=== PATIENT | female | born 1930 | race Two or more races ===

== ENCOUNTER 2018-04-13 15:53 | Inpatient (IN) | payer MEDICARE, MEDICAID ==
--- NOTE | 2018-04-13 16:22 | ED Physician Chart ---
ED Chief Complaint/HPI - Patient Information Date Seen:: 04/13/18 Time Seen:: 16:10 Chief Complaint:: increased agitation History of Present Illness:: Patient has been exhibiting increased agitation at her long term facility. She is reportedly wandering from room to room Allergies:: Allergies Allergy/AdvReac Type Severity Reaction Status Date / Time No Known Allergies Allergy Verified 04/13/18 16:08 Vitals:: Vital Signs - 8 hr 04/13/18 16:08 Temp 97.7 F HR 66 RR 18 BP 99/60 O2 Sat % 98 Historian:: Patient Review:: Transfer documents Reviewed ED Review of Systems - Review of Systems General/Constitutional: No fever, No chills, No weight loss, No weakness, No diaphoresis, No edema, No loss of appetite Skin: No skin lesions, No rash, No bruising Head: No headache, No light-headedness Eyes: No loss of vision, No pain, No diplopia ENT: No earache, No nasal drainage, No sore throat, No tinnitus Neck: No neck pain, No swelling, No thyromegaly, No stiffness, No mass noted Cardio Vascular: No chest pain, No palpitations, No PND, No orthopnea, No edema Pulmonary: No SOB, No cough, No sputum, No wheezing GI: No nausea, No vomiting, No diarrhea, No pain, No melena, No hematochezia, No constipation, No hematemesis G/U: No dysuria, No frequency, No hematuria Musculoskeletal: No bone or joint pain, No back pain, No muscle pain Endocrine: No polyuria, No polydipsia Psychiatric: Prior psych history Hematopoietic: No bruising, No lymphadenopathy Allergic/Immuno: No urticaria, No angioedema Neurological: No syncope, No focal symptoms, No weakness, No paresthesia, No headache, No seizure, No dizziness, No confusion, No vertigo ED Past Medical History - Past Medical History Past Medical History: HTN, DM, Asthma/COPD, Dyslipidemia, Dementia, Other ( cancer) Family History: Other (unavailable) Social History: Care Facility Surgical History: other (unavailable) Psychiatricy History: Dementia Medication: Reviewed Family Medical History - Family Member Mother History Unknown: Yes ED Physical Exam - Physical Examination General/Constitutional: Awake, Well-developed, well-nourished, Alert, No distress, GCS 15, Non-toxic appearing, Ambulatory Other Gen/Cons comments:: Patient is confused she does not know the year Head: Atraumatic Eyes: Lids, conjuctiva normal, PERRL Skin: Nl inspection ENMT: External ears, nose nl Other ENMT comments:: Many teeth missing Neck: No nuchal rigidity Respiratory: Nl effort/Exclusion Cardio Vascular: RRR, No murmur, gallop, rubs GI: No tenderness/rebounding/guarding : No CVA tenderness Extremities: Normal digits & nails Neuro/Psych: No focal deficits ED Labs/Radiology/EKG Results - Lab Results Results: Laboratory Results - last 24 hr 04/13/18 04/13/18 16:48 16:48 WBC 5.1 RBC 3.96 Hgb 12.5 Hct 36.7 L MCV 92.6 MCH 31.6 H MCHC Differential 34.1 RDW 12.3 Plt Count 212 MPV 8.1 Neutrophils % 64.5 Lymphocytes % 25.5 Monocytes % 8.7 Eosinophils % 0.7 Basophils % 0.6 Sodium 137 Potassium 3.5 Chloride 105 Carbon Dioxide 26.6 Anion Gap 8.9 BUN 25 Creatinine 0.8 Est GFR ( Amer) TNP Est GFR (Non-Af Amer) TNP BUN/Creatinine Ratio 31.3 Glucose 179 H Calcium 9.5 Total Bilirubin 0.3 AST 18 ALT 5 L Alkaline Phosphatase 62 Total Protein 6.8 Albumin 4.1 Globulin 2.7 Albumin/Globulin Ratio 1.5 Triglycerides 131 Cholesterol 141 LDL Cholesterol Direct 70 L HDL Cholesterol 55 Salicylates < 25.0 L Acetaminophen < 10.0 L Ethyl Alcohol < 10 - EKG Interpretations Rate & Rhythm: normal sinus rhythm with a rate of 61 [place]: normal Comments:: Left bundle-branch block ED Septic Shock - . Is Septic Shock (SBP<90, OR Lactate>4 mmol\L) present?: No - <6hrs of presentation: Vital Signs: Vital Signs - 8 hr 04/13/18 16:08 Temp 97.7 F HR 66 RR 18 BP 99/60 O2 Sat % 98 ED Reassessment (Disposition) - Reassessment Reassessment Condition:: Unchanged - Diagnosis Diagnosis:: Agitation; dementia - Patient Disposition Admitted to:: [facility] Admitting Medical Physician:: Derick Glez Admitting Psych Physician:: Gloria Rodriguez Condition at Disposition:: Stable, Unchanged
[2018-04-13 17:08] LABS: % BASOPHILS 0.6 % (0.0-2.0); % EOSINOPHILS 0.7 % (0.0-5.0); % LYMPHOCYTES 25.5 % (20.0-50.0); % MONOCYTES 8.7 % (2.0-10.0); % NEUTROPHILS 64.5 % (40.0-80.0); HEMATOCRIT 36.7 % (41.0-60); HEMOGLOBIN 12.5 gm/dL (12-16); LYMPHOCYTE ABSOLUTE 1.3 Th/cmm (1.5-3.0); MEAN CELL VOLUME 92.6 fl (81-100); MEAN CORPUSCULAR HEMOGLOBIN 31.6 pg (27.0-31.0); MEAN CORPUSCULAR HGB CONC 34.1 pg (28.0-36.0); MEAN PLATELET VOLUME 8.1 fl; MONOCYTE ABSOLUTE 0.4 Th/cmm (0.3-1.0); NEUTROPHILE ABSOLUTE 3.4 Th/cmm (1.8-8.0); PLATELET COUNT 212 Th/cmm (150-400); RED BLOOD COUNT 3.96 Mil/cmm (3.80-5.20); RED CELL DISTRIBUTION WIDTH 12.3 % (11.5-20.0); WHITE BLOOD COUNT 5.1 Th/cmm (4.8-10.8)
[2018-04-13 17:22] LABS: ACETAMINOPHEN < 10.0 ug/mL (10.0-30.0); ALB/GLOB RATIO 1.5 (1.0-1.8); ALBUMIN 4.1 gm/dL (3.7-5.3); ALKALINE PHOSPHATASE 62 U/L (34-104); ANION GAP 8.9 (7.0-16.0); BILIRUBIN,TOTAL 0.3 mg/dL (0.3-1.0); BUN - UREA NITROGEN 25 mg/dL (7-25); CALCIUM SERUM 9.5 mg/dL (8.6-10.3); CARBON DIOXIDE 26.6 mEq/L (21.0-31.0); CHLORIDE 105 mEq/L (98-107); CHOLESTEROL 141 mg/dL (<200); CREATININE - SERUM 0.8 mg/dL (0.6-1.2); GLUCOSE 179 mg/dL (70-105); HDL -HIGH DENSITY LIPOPROTEIN 55 mg/dL (23-92); POTASSIUM SERUM 3.5 mEq/L (3.5-5.1); SALICYLATES (ASPIRIN) < 25.0 mg/L (30.0-100.0); SGOT 18 U/L (13-39); SGPT/ALT 5 U/L (7-52); SODIUM SERUM 137 mEq/L (136-145); TOTAL PROTEIN,SERUM 6.8 gm/dL (6.0-8.3); TRIGLYCERIDES 131 mg/dL (<150)
[2018-04-13 17:24] LABS: URINE SOURCE CLEAN C
[2018-04-13 17:35] LABS: URINE BILIRUBIN NEGATIVE (NEGATIVE); URINE BLOOD NEGATIVE (NEGATIVE); URINE GLUCOSE (UA) NEGATIVE (NEGATIVE); URINE KETONE NEGATIVE (NEGATIVE); URINE LEUKOCYTE ESTERASE TRACE (NEGATIVE); URINE MICROSCOPIC INDICATED? YES; URINE NITRATE NEGATIVE (NEGATIVE); URINE PROTEIN NEGATIVE (NEGATIVE); URINE UROBILINOGEN 0.2 E.U./dL (0.2 - 1.0)
[2018-04-13 17:40] LABS: AMPHETAMINE URINE NEGATIVE (NEGATIVE); BARBITURATES URINE NEGATIVE (NEGATIVE); BENZODIAZEPINES QUAL URINE NEGATIVE (NEGATIVE); CANNABINOID THC NEGATIVE (NEGATIVE); COCAINE METABOLITE QUAL URINE NEGATIVE (NEGATIVE); METHADONE URINE NEGATIVE (NEGATIVE); METHAMPHETAMINES QUAL URINE NEGATIVE (NEGATIVE); OPIATES (MORPHINE) QUAL. URINE NEGATIVE (NEGATIVE); PHENCYCLIDINE (PCP) URINE NEGATIVE (NEGATIVE); TRICYCLICS (TCA) QUAL. URINE NEGATIVE (NEGATIVE)
[2018-04-13 17:58] LABS: URINE CLARITY CLEAR (CLEAR); URINE COLOR YELLOW
[2018-04-13 18:00] LABS: URINE BACTERIA 1+ /hpf (NONE SEEN); URINE EPITHELIAL CELLS OCCASIONAL /lpf (FEW); URINE RBC NONE SEEN /hpf (0-5)
[2018-04-13 21:33] VITALS: BP 119/67
[2018-04-13] MEDS ORDERED: Magnesium Hydroxide (MOM) 30 mL UDC PO PRN (23:25)
[2018-04-13] MEDS ORDERED: Fleet Enema 135 mL RC PRN (23:30)
[2018-04-14] MEDS: Multivitamin w/ Minerals Tab PO SCH (08:40)
[2018-04-14] MEDS: Calcium Carb/Vit D 500 mg/200 U Tab PO SCH ×2 (08:40→16:17)
[2018-04-14] MEDS: Fenofibrate, Micronized 134 mg Cap PO SCH (08:40)
[2018-04-14] MEDS ORDERED: Non-Formulary Item 1 EA (Amino Acids/Protein Hydrolys [Pro-Stat Sugar Free Liquid] 30 ML) PO SCH (09:00)
[2018-04-14] MEDS ORDERED: VITAMIN D3 PO SCH (09:00)
[2018-04-14] MEDS ORDERED: [UNRECOGNIZED DRUG - OTHER] PO SCH (09:00)
[2018-04-14] MEDS ORDERED: CALCIUM CARBONATE PO SCH (09:00)
[2018-04-14 10:43] LABS: CHOLESTEROL 157 mg/dL (<200); HDL -HIGH DENSITY LIPOPROTEIN 63 mg/dL (23-92); TRIGLYCERIDES 112 mg/dL (<150)
--- NOTE | 2018-04-14 16:20 | History & Physical ---
ADMIT DATE: 04/14/2018 CHIEF COMPLAINT: Agitation. HISTORY OF PRESENT ILLNESS: This is an 88-year-old elderly female who is a residential resident, who apparently was having increase of agitation towards nursing staff. For this reason, the patient is now admitted here to the Geropsych Unit. PAST MEDICAL HISTORY: Hypertension, diabetes, asthma, dyslipidemia, dementia. FAMILY HISTORY: Noncontributory. SOCIAL HISTORY: The patient is a residential resident. SURGICAL HISTORY: Unknown. MEDICATIONS: Please see medication list. REVIEW OF SYSTEMS: Unable to obtain, patient is confused. PHYSICAL EXAMINATION: GENERAL: Elderly female, awake, alert with confusion, no apparent distress. VITAL SIGNS: Temperature 97.5, heart rate 65, respiration of 18, blood pressure 141/66, O2 98%. HEENT: Head: Normocephalic, atraumatic. NECK: Supple. No mass. LUNGS: Clear bilaterally. HEART: Regular rate and rhythm. ABDOMEN: Soft, nontender. LABORATORY DATA: WBC 5.1, H and H 12.5/36.7, platelet of 200. Sodium of 137, potassium of 3.5, chloride 105, BUN 25, creatinine 0.8. ASSESSMENT: Agitation, dementia, hypertension, diabetes, chronic obstructive pulmonary disease, dyslipidemia. PLAN: Get Accu-Chek a.c. and at bedtime, monitor for any signs or symptoms of hypo or hyperglycemia. We will continue the patient's medications from the residential. We will continue to monitor this patient. JOB# [id number]
[2018-04-14] MEDS: Atorvastatin Calcium 10 MG TAB PO SCH (20:56)
[2018-04-15] MEDS: Calcium Carb/Vit D 500 mg/200 U Tab PO SCH ×2 (08:31→16:08)
[2018-04-15] MEDS: Multivitamin w/ Minerals Tab PO SCH (08:31)
[2018-04-15] MEDS: Fenofibrate, Micronized 134 mg Cap PO SCH (08:31)
--- NOTE | 2018-04-15 16:14 | Internal Medicine Prog Note ---
Internal Medicine Subjective - Subjective Service Date: 04/15/18 Patient seen and examined:: with staff Patient is:: awake Per staff patient has:: tolerating meds Internal Medicine Objective - Results Result Diagrams: 04/13/18 16:48 04/13/18 16:48 Recent Labs: Laboratory Last Values WBC 5.1 Th/cmm (4.8-10.8) 04/13/18 16:48 RBC 3.96 Mil/cmm (3.80-5.20) 04/13/18 16:48 Hgb 12.5 gm/dL (12-16) 04/13/18 16:48 Hct 36.7 % (41.0-60) L 04/13/18 16:48 MCV 92.6 fl (81-100) 04/13/18 16:48 MCH 31.6 pg (27.0-31.0) H 04/13/18 16:48 MCHC Differential 34.1 pg (28.0-36.0) 04/13/18 16:48 RDW 12.3 % (11.5-20.0) 04/13/18 16:48 Plt Count 212 Th/cmm (150-400) 04/13/18 16:48 MPV 8.1 fl 04/13/18 16:48 Neutrophils % 64.5 % (40.0-80.0) 04/13/18 16:48 Lymphocytes % 25.5 % (20.0-50.0) 04/13/18 16:48 Monocytes % 8.7 % (2.0-10.0) 04/13/18 16:48 Eosinophils % 0.7 % (0.0-5.0) 04/13/18 16:48 Basophils % 0.6 % (0.0-2.0) 04/13/18 16:48 Sodium 137 mEq/L (136-145) 04/13/18 16:48 Potassium 3.5 mEq/L (3.5-5.1) 04/13/18 16:48 Chloride 105 mEq/L (98-107) 04/13/18 16:48 Carbon Dioxide 26.6 mEq/L (21.0-31.0) 04/13/18 16:48 Anion Gap 8.9 (7.0-16.0) 04/13/18 16:48 BUN 25 mg/dL (7-25) 04/13/18 16:48 Creatinine 0.8 mg/dL (0.6-1.2) 04/13/18 16:48 Est GFR ( Amer) TNP 04/13/18 16:48 Est GFR (Non-Af Amer) TNP 04/13/18 16:48 BUN/Creatinine Ratio 31.3 04/13/18 16:48 Glucose 179 mg/dL (70-105) H 04/13/18 16:48 Calcium 9.5 mg/dL (8.6-10.3) 04/13/18 16:48 Total Bilirubin 0.3 mg/dL (0.3-1.0) 04/13/18 16:48 AST 18 U/L (13-39) 04/13/18 16:48 ALT 5 U/L (7-52) L 04/13/18 16:48 Alkaline Phosphatase 62 U/L (34-104) 04/13/18 16:48 Total Protein 6.8 gm/dL (6.0-8.3) 04/13/18 16:48 Albumin 4.1 gm/dL (3.7-5.3) 04/13/18 16:48 Globulin 2.7 gm/dL 04/13/18 16:48 Albumin/Globulin Ratio 1.5 (1.0-1.8) 04/13/18 16:48 Triglycerides 112 mg/dL (<150) 04/14/18 10:16 Cholesterol 157 mg/dL (<200) 04/14/18 10:16 LDL Cholesterol Direct 79 mg/dL (75-193) 04/14/18 10:16 HDL Cholesterol 63 mg/dL (23-92) 04/14/18 10:16 TSH 1.40 uIU/ml (0.34-5.60) 04/13/18 16:48 Urine Source CLEAN C 04/13/18 14:55 Urine Color YELLOW 04/13/18 14:55 Urine Clarity CLEAR (CLEAR) 04/13/18 14:55 Urine pH 6.0 (4.6 - 8.0) 04/13/18 14:55 Ur Specific [place] 1.025 (1.005-1.030) 04/13/18 14:55 Urine Protein NEGATIVE mg/dL (NEGATIVE) 09/20/18 14:55 Urine Glucose (UA) NEGATIVE mg/dL (NEGATIVE) 04/13/18 14:55 Urine Ketones NEGATIVE mg/dL (NEGATIVE) 04/13/18 14:55 Urine Blood NEGATIVE (NEGATIVE) 04/13/18 14:55 Urine Nitrate NEGATIVE (NEGATIVE) 04/13/18 14:55 Urine Bilirubin NEGATIVE (NEGATIVE) 04/13/18 14:55 Urine Urobilinogen 0.2 E.U./dL (0.2 - 1.0) 04/13/18 14:55 Ur Leukocyte Esterase TRACE (NEGATIVE) H 04/13/18 14:55 Urine RBC NONE SEEN /hpf (0-5) 04/13/18 14:55 Urine WBC 2-5 /hpf (0-5) 04/13/18 14:55 Ur Epithelial Cells OCCASIONAL /lpf (FEW) 04/13/18 14:55 Urine Bacteria 1+ /hpf (NONE SEEN) H 04/13/18 14:55 Salicylates < 25.0 mg/L (30.0-100.0) L 04/13/18 16:48 Urine Opiates Screen NEGATIVE (NEGATIVE) 04/13/18 14:55 Urine Methadone Screen NEGATIVE (NEGATIVE) 04/13/18 14:55 Acetaminophen < 10.0 ug/mL (10.0-30.0) L 04/13/18 16:48 Ur Barbiturates Screen NEGATIVE (NEGATIVE) 04/13/18 14:55 Ur Tricyclics Screen NEGATIVE (NEGATIVE) 04/13/18 14:55 Ur Phencyclidine Scrn NEGATIVE (NEGATIVE) 04/13/18 14:55 Amphetamines Screen NEGATIVE (NEGATIVE) 04/13/18 14:55 U Methamphetamines Scrn NEGATIVE (NEGATIVE) 04/13/18 14:55 U Benzodiazepines Scrn NEGATIVE (NEGATIVE) 04/13/18 14:55 U Cocaine Metab Screen NEGATIVE (NEGATIVE) 04/13/18 14:55 U Cannabinoids Screen NEGATIVE (NEGATIVE) 04/13/18 14:55 Ethyl Alcohol < 10 mg/dL (0-10) 04/13/18 16:48 RPR NONREACTIVE (NONREACTIVE) 04/13/18 16:48 - Physical Exam Vitals and I&O: Vital Signs Temp 96.8 F 04/15/18 14:00 Pulse 63 04/15/18 14:00 Resp 18 04/15/18 14:00 BP 109/61 04/15/18 14:00 Pulse Ox 96 04/15/18 14:00 Active Medications: Current Medications Acetaminophen (Tylenol) 650 mg PO Q4HR PRN PRN Reason: Mild Pain / Temp above 100 Stop: 06/12/18 23:29 Aspirin (Ecotrin) 81 mg PO HS [facility] Stop: 06/13/18 20:59 Last Admin: 04/14/18 20:56 Dose: 81 mg Atorvastatin Calcium (Lipitor) 10 mg PO HS [facility]; Protocol Stop: 06/13/18 20:59 Last Admin: 04/14/18 20:56 Dose: 10 mg Bisacodyl (Dulcolax 10 Mg Supp) 10 mg RC DAILY PRN PRN Reason: Constipation Stop: 06/12/18 23:24 Calcium/Vitamin D (Oscal W/Vitamin D) 1 tab PO BID [facility] Stop: 06/13/18 08:59 Last Admin: 04/15/18 16:08 Dose: 1 tab Carvedilol (Coreg) 6.25 mg PO DAILY [facility] Stop: 06/13/18 08:59 Last Admin: 04/15/18 08:29 Dose: 6.25 mg Docusate Sodium (Colace) 100 mg PO DAILY [facility] Stop: 06/13/18 08:59 Last Admin: 04/15/18 08:29 Dose: 100 mg Donepezil HCl (Aricept) 5 mg PO QAM [facility] Stop: 06/13/18 08:59 Last Admin: 04/15/18 08:29 Dose: 5 mg Fenofibrate (Tricor) 134 mg PO DAILY [facility] Stop: 06/13/18 08:59 Last Admin: 04/15/18 08:31 Dose: 134 mg Lorazepam (Ativan) 0.5 mg PO Q4HR PRN; Protocol PRN Reason: Anxiety Stop: 05/13/18 23:29 Magnesium Hydroxide (Milk Of Magnesia) 30 ml PO DAILY PRN PRN Reason: Constipation Stop: 06/12/18 23:24 Sertraline HCl (Zoloft) 150 mg PO HS [facility] Stop: 06/13/18 20:59 Last Admin: 04/14/18 20:56 Dose: 150 mg Sertraline HCl (Zoloft) 25 mg PO DAILY [facility]; Protocol Stop: 06/14/18 08:59 Last Admin: 04/15/18 08:29 Dose: 25 mg Sodium Phosphate (Fleet Enema) 135 ml RC Q48H PRN PRN Reason: IF DULCOLAX INEFFECTIVE Stop: 06/12/18 23:29 Zolpidem Tartrate (Ambien) 5 mg PO HS PRN PRN Reason: Insomnia Stop: 06/12/18 23:29 General: alert HEENT: NC/AT, PERRLA Neck: Supple Lungs: CTAB Cardiovascular: RRR, Normal S1, Normal S2, without murmur Abdomen: soft, non-tender, non-distended Neurological: no change Internal Medicine Assmt/Plan - Assessment Assessment: agitatiion dementia htn dm copd dyslipidemia - Plan Plan: fall precautions continue current plan of care
[2018-04-15] MEDS: Atorvastatin Calcium 10 MG TAB PO SCH (20:54)
[2018-04-16] MEDS: Fenofibrate, Micronized 134 mg Cap PO SCH (08:30)
[2018-04-16] MEDS: Calcium Carb/Vit D 500 mg/200 U Tab PO SCH ×2 (08:30→17:19)
[2018-04-16] MEDS: Multivitamin w/ Minerals Tab PO SCH (08:30)
--- NOTE | 2018-04-16 13:26 | Internal Medicine Prog Note ---
Internal Medicine Subjective - Subjective Service Date: 04/16/18 Patient is:: awake Per staff patient has:: tolerating meds Internal Medicine Objective - Results Result Diagrams: 04/13/18 16:48 04/13/18 16:48 Recent Labs: Laboratory Last Values WBC 5.1 Th/cmm (4.8-10.8) 04/13/18 16:48 RBC 3.96 Mil/cmm (3.80-5.20) 04/13/18 16:48 Hgb 12.5 gm/dL (12-16) 04/13/18 16:48 Hct 36.7 % (41.0-60) L 04/13/18 16:48 MCV 92.6 fl (81-100) 04/13/18 16:48 MCH 31.6 pg (27.0-31.0) H 04/13/18 16:48 MCHC Differential 34.1 pg (28.0-36.0) 04/13/18 16:48 RDW 12.3 % (11.5-20.0) 04/13/18 16:48 Plt Count 212 Th/cmm (150-400) 04/13/18 16:48 MPV 8.1 fl 04/13/18 16:48 Neutrophils % 64.5 % (40.0-80.0) 04/13/18 16:48 Lymphocytes % 25.5 % (20.0-50.0) 04/13/18 16:48 Monocytes % 8.7 % (2.0-10.0) 04/13/18 16:48 Eosinophils % 0.7 % (0.0-5.0) 04/13/18 16:48 Basophils % 0.6 % (0.0-2.0) 04/13/18 16:48 Sodium 137 mEq/L (136-145) 04/13/18 16:48 Potassium 3.5 mEq/L (3.5-5.1) 04/13/18 16:48 Chloride 105 mEq/L (98-107) 04/13/18 16:48 Carbon Dioxide 26.6 mEq/L (21.0-31.0) 04/13/18 16:48 Anion Gap 8.9 (7.0-16.0) 04/13/18 16:48 BUN 25 mg/dL (7-25) 04/13/18 16:48 Creatinine 0.8 mg/dL (0.6-1.2) 04/13/18 16:48 Est GFR ( Amer) TNP 04/13/18 16:48 Est GFR (Non-Af Amer) TNP 04/13/18 16:48 BUN/Creatinine Ratio 31.3 04/13/18 16:48 Glucose 179 mg/dL (70-105) H 04/13/18 16:48 POC Glucose 121 MG/DL (70 - 105) H 04/16/18 11:50 Calcium 9.5 mg/dL (8.6-10.3) 04/13/18 16:48 Total Bilirubin 0.3 mg/dL (0.3-1.0) 04/13/18 16:48 AST 18 U/L (13-39) 04/13/18 16:48 ALT 5 U/L (7-52) L 04/13/18 16:48 Alkaline Phosphatase 62 U/L (34-104) 04/13/18 16:48 Total Protein 6.8 gm/dL (6.0-8.3) 04/13/18 16:48 Albumin 4.1 gm/dL (3.7-5.3) 04/13/18 16:48 Globulin 2.7 gm/dL 04/13/18 16:48 Albumin/Globulin Ratio 1.5 (1.0-1.8) 04/13/18 16:48 Triglycerides 112 mg/dL (<150) 04/14/18 10:16 Cholesterol 157 mg/dL (<200) 04/14/18 10:16 LDL Cholesterol Direct 79 mg/dL (75-193) 04/14/18 10:16 HDL Cholesterol 63 mg/dL (23-92) 04/14/18 10:16 TSH 1.40 uIU/ml (0.34-5.60) 04/13/18 16:48 Urine Source CLEAN C 04/13/18 14:55 Urine Color YELLOW 04/13/18 14:55 Urine Clarity CLEAR (CLEAR) 04/13/18 14:55 Urine pH 6.0 (4.6 - 8.0) 04/13/18 14:55 Ur Specific [place] 1.025 (1.005-1.030) 04/13/18 14:55 Urine Protein NEGATIVE mg/dL (NEGATIVE) 04/13/18 14:55 Urine Glucose (UA) NEGATIVE mg/dL (NEGATIVE) 04/13/18 14:55 Urine Ketones NEGATIVE mg/dL (NEGATIVE) 04/13/18 14:55 Urine Blood NEGATIVE (NEGATIVE) 04/13/18 14:55 Urine Nitrate NEGATIVE (NEGATIVE) 04/13/18 14:55 Urine Bilirubin NEGATIVE (NEGATIVE) 04/13/18 14:55 Urine Urobilinogen 0.2 E.U./dL (0.2 - 1.0) 04/13/18 14:55 Ur Leukocyte Esterase TRACE (NEGATIVE) H 04/13/18 14:55 Urine RBC NONE SEEN /hpf (0-5) 04/13/18 14:55 Urine WBC 2-5 /hpf (0-5) 04/13/18 14:55 Ur Epithelial Cells OCCASIONAL /lpf (FEW) 04/13/18 14:55 Urine Bacteria 1+ /hpf (NONE SEEN) H 04/13/18 14:55 Salicylates < 25.0 mg/L (30.0-100.0) L 04/13/18 16:48 Urine Opiates Screen NEGATIVE (NEGATIVE) 04/13/18 14:55 Urine Methadone Screen NEGATIVE (NEGATIVE) 04/13/18 14:55 Acetaminophen < 10.0 ug/mL (10.0-30.0) L 04/13/18 16:48 Ur Barbiturates Screen NEGATIVE (NEGATIVE) 04/13/18 14:55 Ur Tricyclics Screen NEGATIVE (NEGATIVE) 04/13/18 14:55 Ur Phencyclidine Scrn NEGATIVE (NEGATIVE) 04/13/18 14:55 Amphetamines Screen NEGATIVE (NEGATIVE) 04/13/18 14:55 U Methamphetamines Scrn NEGATIVE (NEGATIVE) 04/13/18 14:55 U Benzodiazepines Scrn NEGATIVE (NEGATIVE) 04/13/18 14:55 U Cocaine Metab Screen NEGATIVE (NEGATIVE) 04/13/18 14:55 U Cannabinoids Screen NEGATIVE (NEGATIVE) 04/13/18 14:55 Ethyl Alcohol < 10 mg/dL (0-10) 04/13/18 16:48 RPR NONREACTIVE (NONREACTIVE) 04/13/18 16:48 - Physical Exam Vitals and I&O: Vital Signs Temp 97.9 F 04/16/18 06:46 Pulse 68 04/16/18 08:30 Resp 18 04/16/18 06:46 BP 144/84 04/16/18 08:30 Pulse Ox 97 04/16/18 06:46 Intake & Output 04/15/18 04/16/18 04/16/18 18:59 06:59 18:59 Intake Total 1200 120 Balance 1200 120 Intake: Oral 1200 120 Other: # Voids 3 3 # Bowel Movements 0 Active Medications: Current Medications Acetaminophen (Tylenol) 650 mg PO Q4HR PRN PRN Reason: Mild Pain / Temp above 100 Stop: 06/12/18 23:29 Aspirin (Ecotrin) 81 mg PO [facility] Stop: 06/13/18 20:59 Last Admin: 04/15/18 20:55 Dose: 81 mg Atorvastatin Calcium (Lipitor) 10 mg PO [facility]; Protocol Stop: 06/13/18 20:59 Last Admin: 04/15/18 20:54 Dose: 10 mg Bisacodyl (Dulcolax 10 Mg Supp) 10 mg RC DAILY PRN PRN Reason: Constipation Stop: 06/12/18 23:24 Calcium/Vitamin D (Oscal W/Vitamin D) 1 tab PO BID [facility] Stop: 06/13/18 08:59 Last Admin: 04/16/18 08:30 Dose: 1 tab Carvedilol (Coreg) 6.25 mg PO DAILY [facility] Stop: 06/13/18 08:59 Last Admin: 04/16/18 08:30 Dose: 6.25 mg Docusate Sodium (Colace) 100 mg PO DAILY [facility] Stop: 06/13/18 08:59 Last Admin: 04/16/18 08:30 Dose: 100 mg Donepezil HCl (Aricept) 5 mg PO QAM [facility] Stop: 06/13/18 08:59 Last Admin: 04/16/18 08:30 Dose: 5 mg Fenofibrate (Tricor) 134 mg PO DAILY [facility] Stop: 06/13/18 08:59 Last Admin: 04/16/18 08:30 Dose: 134 mg Lorazepam (Ativan) 0.5 mg PO Q4HR PRN; Protocol PRN Reason: Anxiety Stop: 05/13/18 23:29 Magnesium Hydroxide (Milk Of Magnesia) 30 ml PO DAILY PRN PRN Reason: Constipation Stop: 06/12/18 23:24 Sertraline HCl (Zoloft) 150 mg PO HS [facility] Stop: 06/13/18 20:59 Last Admin: 04/15/18 20:55 Dose: 150 mg Sertraline HCl (Zoloft) 25 mg PO DAILY [facility]; Protocol Stop: 06/14/18 08:59 Last Admin: 04/16/18 08:30 Dose: 25 mg Sodium Phosphate (Fleet Enema) 135 ml RC Q48H PRN PRN Reason: IF DULCOLAX INEFFECTIVE Stop: 06/12/18 23:29 Zolpidem Tartrate (Ambien) 5 mg PO HS PRN PRN Reason: Insomnia Stop: 06/12/18 23:29 General: alert HEENT: NC/AT, PERRLA Neck: Supple Lungs: CTAB Cardiovascular: RRR, Normal S1, Normal S2, without murmur Abdomen: soft, non-tender, non-distended Neurological: no change Internal Medicine Assmt/Plan - Assessment Assessment: agitatiion dementia htn dm copd dyslipidemia - Plan Plan: fall precautions continue current plan of care
[2018-04-16] MEDS: Atorvastatin Calcium 10 MG TAB PO SCH (20:23)
--- NOTE | 2018-04-16 21:39 | Progress Notes ---
DATE: 04/15/2018 DATE: 04/15/2018 SUBJECTIVE: Chart reviewed and the patient interviewed. Also discussed the patient's condition with the staff and reviewed records and labs. The patient still needs lots of redirection and she has still been walking up and down the hallway aimlessly. She also forgetful and she needs still a lot of redirections. At times, gets agitated when staff try to redirect her. Otherwise, the patient is compliant with taking medications including Zoloft and Aricept with no side effects. ASSESSMENT: The patient is still confused and agitated. TREATMENT PLAN: Continue current medications and continue to work on behavioral modifications and continue to follow up. JOB# [id number]
--- NOTE | 2018-04-16 21:59 | Progress Notes ---
DATE: 04/16/2018 SUBJECTIVE: Chart reviewed and the patient interviewed. Also, discussed the patient's condition with the staff and reviewed records and labs. The patient is still restless and anxious. The patient also still seems to be confused. She still needs lots of redirections and she is still having episodes of agitation and irritability. The patient also continued pacing up and down the hallway. At the same time, the patient is compliant with taking her medications with no side effects. ASSESSMENT: The patient is still agitated and needs close monitoring. TREATMENT PLAN: Continue to monitor behavior and condition closely. Also, continue adjusting psychotropic medications and work on behavioral modifications. JOB# [id number]
--- NOTE | 2018-04-16 22:51 | Psychiatric Evaluation ---
DATE OF SERVICE: PSYCHIATRIC INITIAL EVALUATION AND MENTAL STATUS EXAM PATIENT'S AGE: 88-year-old. SEX: Female. PHYSICIAN: Dr. Rodriguez. CHIEF COMPLAINT: Agitation and confusion. HISTORY OF PRESENT ILLNESS: The patient is an 88-year-old female who was transferred from [facility] because of increased agitation and increased irritability. The patient has been increasingly irritable and has been in angry mood. The patient also has not been able to follow any of staff directions. The patient also has been wandering in the facility. The patient was transferred to the hospital. The patient has been increasingly agitated and also have episodes of anger. She also seems to be slightly confused. PAST PSYCHIATRIC HISTORY: The patient has a history of dementia and psychosis. PAST MEDICAL HISTORY: The patient has G-tube removed 2 days prior to her admission. She has gastroesophageal reflux disease. SOCIAL HISTORY: The patient lives in [facility]. No known alcohol or drug use. ALLERGIES: No known allergies. MENTAL STATUS EXAMINATION: The patient appears slightly older than her stated age. Anxious. Irritable mood. Confused. Thought processes are circumstantial but no flight of ideas. The patient denies hallucinations, but seems to be actively responding to stimuli. The patient is alert and oriented to situation, but not to place and person. Impaired immediate and recent memory, but intact remote memory. Poor insight and poor judgment. She seems to be of average intelligence based on her verbal ability. ASSESSMENT: PRIMARY DIAGNOSIS: Unspecified psychosis. Unspecified mood disorder with psychotic features. SECONDARY DIAGNOSIS: Dementia, moderate, with psychotic features. TREATMENT PLAN: We will continue monitoring her behavior and her condition closely. Also, we will continue Zoloft and adjust the dose. Also continue adjusting psychotropic medications. ESTIMATED LENGTH OF STAY: 5-7 days. THE PATIENT'S STRENGTHS AND WEAKNESSES: The patient has supportive staff at [facility]. Weaknesses is her forgetfulness and ineffective coping and poor impulse control. AFTER DISCHARGE PLAN: Outpatient treatment and followup will continue as an outpatient and the patient will return to [facility]. JOB# [id number]
[2018-04-17] MEDS: Multivitamin w/ Minerals Tab PO SCH (08:48)
[2018-04-17] MEDS: Calcium Carb/Vit D 500 mg/200 U Tab PO SCH ×2 (08:49→17:06)
[2018-04-17] MEDS: Fenofibrate, Micronized 134 mg Cap PO SCH (08:49)
[2018-04-17] MEDS: Atorvastatin Calcium 10 MG TAB PO SCH (20:15)
--- NOTE | 2018-04-17 23:28 | Progress Notes ---
DATE: 04/17/[address] Rodriguez. Case was discussed with staff of the patient, reviewed record. This is an 88-year-old female transferred from [facility] because of irritability. The patient has been angry, has not been able to follow direction, wandering in the facility. The patient when I talked to her unable to find a meaningful conversation with a history of dementia and psychosis. She has a G-tube removed 2 days prior to admission. The patient has no known drug allergy. The patient so far has been compliant with the medication with no side effects, no sedation or nausea, no extrapyramidal symptoms. She is on Seroquel 5 mg at bedtime and Zoloft 175 mg at bedtime and we will continue to work with the patient in group therapy, milieu therapy, adjust medication as needed. JOB# [id number]
[2018-04-18] MEDS: Fenofibrate, Micronized 134 mg Cap PO SCH (08:59)
[2018-04-18] MEDS: Multivitamin w/ Minerals Tab PO SCH (09:01)
[2018-04-18] MEDS: Calcium Carb/Vit D 500 mg/200 U Tab PO SCH ×2 (09:02→17:01)
--- NOTE | 2018-04-18 17:50 | Progress Notes ---
DATE: 04/18/2018 Case was discussed with staff of the patient, reviewed records. The patient continues to be confused, continues to be unable to make safe plan for self-care, unpredictable, impulsive, needing redirection. She continues to have poor insight. She continues to have episodes of agitation, irritability. No side effects of the medication, no sedation, no nausea and no extrapyramidal symptoms. I will continue outpatient group therapy, milieu therapy, adjust medication as needed. JOB# [id number]
[2018-04-18] MEDS: Atorvastatin Calcium 10 MG TAB PO SCH (20:25)
[2018-04-19] MEDS: Multivitamin w/ Minerals Tab PO SCH (09:12)
[2018-04-19] MEDS: Fenofibrate, Micronized 134 mg Cap PO SCH (09:13)
[2018-04-19] MEDS: Calcium Carb/Vit D 500 mg/200 U Tab PO SCH ×2 (09:13→17:15)
--- NOTE | 2018-04-19 15:16 | Internal Medicine Prog Note ---
Internal Medicine Subjective - Subjective Service Date: 04/19/18 Patient is:: awake Per staff patient has:: tolerating meds Internal Medicine Objective - Results Result Diagrams: 04/13/18 16:48 04/13/18 16:48 Recent Labs: Laboratory Last Values WBC 5.1 Th/cmm (4.8-10.8) 04/13/18 16:48 RBC 3.96 Mil/cmm (3.80-5.20) 04/13/18 16:48 Hgb 12.5 gm/dL (12-16) 04/13/18 16:48 Hct 36.7 % (41.0-60) L 04/13/18 16:48 MCV 92.6 fl (81-100) 04/13/18 16:48 MCH 31.6 pg (27.0-31.0) H 04/13/18 16:48 MCHC Differential 34.1 pg (28.0-36.0) 04/13/18 16:48 RDW 12.3 % (11.5-20.0) 04/13/18 16:48 Plt Count 212 Th/cmm (150-400) 04/13/18 16:48 MPV 8.1 fl 04/13/18 16:48 Neutrophils % 64.5 % (40.0-80.0) 04/13/18 16:48 Lymphocytes % 25.5 % (20.0-50.0) 04/13/18 16:48 Monocytes % 8.7 % (2.0-10.0) 04/13/18 16:48 Eosinophils % 0.7 % (0.0-5.0) 04/13/18 16:48 Basophils % 0.6 % (0.0-2.0) 04/13/18 16:48 Sodium 137 mEq/L (136-145) 04/13/18 16:48 Potassium 3.5 mEq/L (3.5-5.1) 04/13/18 16:48 Chloride 105 mEq/L (98-107) 04/13/18 16:48 Carbon Dioxide 26.6 mEq/L (21.0-31.0) 04/13/18 16:48 Anion Gap 8.9 (7.0-16.0) 04/13/18 16:48 BUN 25 mg/dL (7-25) 04/13/18 16:48 Creatinine 0.8 mg/dL (0.6-1.2) 04/13/18 16:48 Est GFR ( Amer) TNP 04/13/18 16:48 Est GFR (Non-Af Amer) TNP 04/13/18 16:48 BUN/Creatinine Ratio 31.3 04/13/18 16:48 Glucose 179 mg/dL (70-105) H 04/13/18 16:48 POC Glucose 98 MG/DL (70 - 105) 04/19/18 05:55 Calcium 9.5 mg/dL (8.6-10.3) 04/13/18 16:48 Total Bilirubin 0.3 mg/dL (0.3-1.0) 04/13/18 16:48 AST 18 U/L (13-39) 04/13/18 16:48 ALT 5 U/L (7-52) L 04/13/18 16:48 Alkaline Phosphatase 62 U/L (34-104) 04/13/18 16:48 Total Protein 6.8 gm/dL (6.0-8.3) 04/13/18 16:48 Albumin 4.1 gm/dL (3.7-5.3) 04/13/18 16:48 Globulin 2.7 gm/dL 04/13/18 16:48 Albumin/Globulin Ratio 1.5 (1.0-1.8) 04/13/18 16:48 Triglycerides 112 mg/dL (<150) 04/14/18 10:16 Cholesterol 157 mg/dL (<200) 04/14/18 10:16 LDL Cholesterol Direct 79 mg/dL (75-193) 04/14/18 10:16 HDL Cholesterol 63 mg/dL (23-92) 04/14/18 10:16 TSH 1.40 uIU/ml (0.34-5.60) 04/13/18 16:48 Urine Source CLEAN C 04/13/18 14:55 Urine Color YELLOW 04/13/18 14:55 Urine Clarity CLEAR (CLEAR) 04/13/18 14:55 Urine pH 6.0 (4.6 - 8.0) 04/13/18 14:55 Ur Specific [place] 1.025 (1.005-1.030) 04/13/18 14:55 Urine Protein NEGATIVE mg/dL (NEGATIVE) 04/13/18 14:55 Urine Glucose (UA) NEGATIVE mg/dL (NEGATIVE) 04/13/18 14:55 Urine Ketones NEGATIVE mg/dL (NEGATIVE) 04/13/18 14:55 Urine Blood NEGATIVE (NEGATIVE) 04/13/18 14:55 Urine Nitrate NEGATIVE (NEGATIVE) 04/13/18 14:55 Urine Bilirubin NEGATIVE (NEGATIVE) 04/13/18 14:55 Urine Urobilinogen 0.2 E.U./dL (0.2 - 1.0) 04/13/18 14:55 Ur Leukocyte Esterase TRACE (NEGATIVE) H 04/13/18 14:55 Urine RBC NONE SEEN /hpf (0-5) 04/13/18 14:55 Urine WBC 2-5 /hpf (0-5) 04/13/18 14:55 Ur Epithelial Cells OCCASIONAL /lpf (FEW) 04/13/18 14:55 Urine Bacteria 1+ /hpf (NONE SEEN) H 04/13/18 14:55 Salicylates < 25.0 mg/L (30.0-100.0) L 04/13/18 16:48 Urine Opiates Screen NEGATIVE (NEGATIVE) 04/13/18 14:55 Urine Methadone Screen NEGATIVE (NEGATIVE) 04/13/18 14:55 Acetaminophen < 10.0 ug/mL (10.0-30.0) L 04/13/18 16:48 Ur Barbiturates Screen NEGATIVE (NEGATIVE) 04/13/18 14:55 Ur Tricyclics Screen NEGATIVE (NEGATIVE) 04/13/18 14:55 Ur Phencyclidine Scrn NEGATIVE (NEGATIVE) 04/13/18 14:55 Amphetamines Screen NEGATIVE (NEGATIVE) 04/13/18 14:55 U Methamphetamines Scrn NEGATIVE (NEGATIVE) 04/13/18 14:55 U Benzodiazepines Scrn NEGATIVE (NEGATIVE) 04/13/18 14:55 U Cocaine Metab Screen NEGATIVE (NEGATIVE) 04/13/18 14:55 U Cannabinoids Screen NEGATIVE (NEGATIVE) 04/13/18 14:55 Ethyl Alcohol < 10 mg/dL (0-10) 04/13/18 16:48 RPR NONREACTIVE (NONREACTIVE) 04/13/18 16:48 - Physical Exam Vitals and I&O: Vital Signs Temp 97.9 F 04/19/18 06:37 Pulse 71 04/19/18 09:13 Resp 18 04/19/18 06:37 BP 137/75 04/19/18 09:13 Pulse Ox 99 04/19/18 06:37 Intake & Output 04/18/18 04/19/18 04/19/18 18:59 06:59 18:59 Intake Total 900 120 Balance 900 120 Intake: Oral 900 120 Other: # Voids 4 3 # Bowel Movements 1 0 Active Medications: Current Medications Acetaminophen (Tylenol) 650 mg PO Q4HR PRN PRN Reason: Mild Pain / Temp above 100 Stop: 06/12/18 23:29 Aspirin (Ecotrin) 81 mg PO [facility] Stop: 06/13/18 20:59 Last Admin: 04/18/18 20:25 Dose: 81 mg Atorvastatin Calcium (Lipitor) 10 mg PO [facility]; Protocol Stop: 06/13/18 20:59 Last Admin: 04/18/18 20:25 Dose: 10 mg Bisacodyl (Dulcolax 10 Mg Supp) 10 mg RC DAILY PRN PRN Reason: Constipation Stop: 06/12/18 23:24 Calcium/Vitamin D (Oscal W/Vitamin D) 1 tab PO BID [facility] Stop: 06/13/18 08:59 Last Admin: 04/19/18 09:13 Dose: 1 tab Carvedilol (Coreg) 6.25 mg PO DAILY [facility] Stop: 06/13/18 08:59 Last Admin: 04/19/18 09:13 Dose: 6.25 mg Docusate Sodium (Colace) 100 mg PO DAILY [facility] Stop: 06/13/18 08:59 Last Admin: 04/19/18 09:12 Dose: 100 mg Donepezil HCl (Aricept) 5 mg PO QAM [facility] Stop: 06/13/18 08:59 Last Admin: 04/19/18 09:12 Dose: 5 mg Fenofibrate (Tricor) 134 mg PO DAILY [facility] Stop: 06/13/18 08:59 Last Admin: 04/19/18 09:13 Dose: 134 mg Lorazepam (Ativan) 0.5 mg PO Q4HR PRN; Protocol PRN Reason: Anxiety Stop: 05/13/18 23:29 Magnesium Hydroxide (Milk Of Magnesia) 30 ml PO DAILY PRN PRN Reason: Constipation Stop: 06/12/18 23:24 Sertraline HCl (Zoloft) 150 mg PO HS [facility] Stop: 06/13/18 20:59 Last Admin: 04/18/18 20:25 Dose: 150 mg Sertraline HCl (Zoloft) 25 mg PO DAILY [facility]; Protocol Stop: 06/14/18 08:59 Last Admin: 04/19/18 09:13 Dose: 25 mg Sodium Phosphate (Fleet Enema) 135 ml RC Q48H PRN PRN Reason: IF DULCOLAX INEFFECTIVE Stop: 06/12/18 23:29 Zolpidem Tartrate (Ambien) 5 mg PO HS PRN PRN Reason: Insomnia Stop: 06/12/18 23:29 Last Admin: 04/18/18 20:25 Dose: 5 mg General: alert HEENT: NC/AT, PERRLA Neck: Supple Lungs: CTAB Cardiovascular: RRR, Normal S1, Normal S2, without murmur Abdomen: soft, non-tender, non-distended Neurological: no change Internal Medicine Assmt/Plan - Assessment Assessment: agitatiion dementia htn dm copd dyslipidemia - Plan Plan: fall precautions continue current plan of care Nutritional Asmnt/Malnutr-PDOC - Dietary Evaluation Malnutrition Findings (Please click <Entered> for more info): Nutritional Asmnt/Malnutrition Start: 04/17/18 14: 27 Text: Status: Complete Freq: Protocol: Document 04/17/18 14:27 TEREZA (Rec: 04/17/18 14:48 TEREZA [email or web address]) Nutritional Asmnt/Malnutrition Patient General Information Nutritional Screening Moderate Risk Diagnosis psychosis Pertinent Medical Hx/Surgical Hx hypertension, diabetes, asthma , dyslipidemia, dementia, depression, COPD, psychosis Subjective Information Pt was not present in room at time of visit. Per EMR, PO intake 50-75%. Current Diet Order/ Nutrition Support CCHO 60 gm, mechanical soft chopped Pertinent Medications lipitor, dulcolax, oscal w/ Vit D, colace, tricor, Pertinent Labs 04/15-04/16: POC 120-92 ( trending down) 04/13 Glucose 179 Nutritional Hx/Data Height 4 ft 10 in Height (Calculated Centimeters) 147.3 Current Weight (lbs) 90 lb Weight (Calculated Kilograms) 40.8 Weight (Calculated Grams) 63179.3 [place] Body Weight 96 lb Body Mass Index (BMI) 18.8 Weight Status Approriate GI Symptoms GI Symptoms None Last BM none noted Difficult in: None Food Allergies No Skin Integrity/Comment: intact Current %PO Fair (50-74%) Estimated Nutritional Goals BEE in Kcals: Using Current wt Calories/Kcals/Kg 25-30 Kcals Calculated 0786-1759 Protein: Using Current wt Protein g/k-1.2 Protein Calculated 41-49 g Fluid: ml 0855-7335 (1 kcal/ml) Nutritional Problem No current Nutrition Prob Problem N/A Malnutrition Alert Is there a minimum of two criteria No selected? Query Text:Check all the applicable criteria. A minimum of two criteria are recommended for diagnosis of either severe or non-severe malnutrition. Malnutrition Related to Morbid Obesity Malnutrition related to morbid obesity No Intervention/Recommendation Comments 1. Continue with CCHO 60 gm, mechanical soft chopped diet as ordered. Continue to monitor glucose labs. 2. Monitor PO intake, wt, labs and skin integrity 3. F/U as low risk in 7 days, 04/24 Expected Outcomes/Goals Expected Outcomes/Goals 1. PO intake to meet at least 75% of nutritional needs. 2. Wt stability, skin to remain intact, labs to approach WNL Reviewed by Jennifer Brown RD
--- NOTE | 2018-04-19 21:12 | Progress Notes ---
DATE: 04/19/2018 SUBJECTIVE: Chart reviewed and the patient interviewed. Also, discussed the patient's condition with the staff and reviewed records and labs. The patient continued to be confused. The patient also is still wandering around and rambling and talking to self and still has difficulty following directions. The patient also still seems to be suspicious and paranoid. Otherwise, the patient is showing no major medical problems and she is easier to redirect her. ASSESSMENT: The patient is still having episodes of psychosis and needs close monitoring. TREATMENT PLAN: Continue to monitor her behavior and her condition closely. Also, continue to work on her behavior modification and adjusting psychotropic medications. JOB# [id number]
[2018-04-19] MEDS: Atorvastatin Calcium 10 MG TAB PO SCH (21:44)
--- NOTE | 2018-04-20 07:34 | Discharge Summary ---
DATE OF DISCHARGE: 04/20/2018 DATE OF DISCHARGE: 04/20/2018. THE PATIENT'S AGE: 88. SEX: Female. PHYSICIAN: Dr. Rodriguez. FINAL DIAGNOSIS/PRIMARY DIAGNOSIS: Unspecified psychosis. SECONDARY DIAGNOSIS: Dementia, moderate to severe. REASON FOR HOSPITALIZATION: The patient was admitted to the hospital because of increased agitation and irritability. HOSPITAL COURSE: The patient continued to be anxious and in agitated and in irritable mood. The patient also was suspicious, paranoid, and uncooperative with her treatment. The patient continued to take Aricept 5 mg every day and Zoloft 150 mg every day at night and 25 mg during the day. The patient's affect became brighter. The patient was less irritable and less agitated. The patient also interacting more. The patient was discharged from the hospital. Physical exam of the patient showed no major medical problems while in the hospital. Blood workup was also monitored closely by Dr. Glez and it was basically within normal. AFTER DISCHARGE PLANS: The patient discharged from the hospital with plans to continue her treatment in [facility]. EXPECTED OUTCOME AFTER DISCHARGE: Fair if the patient continues with outpatient treatment and followup with discharge plans. JOB# [id number]
[2018-04-20] MEDS: Multivitamin w/ Minerals Tab PO SCH (09:31)
[2018-04-20] MEDS: Fenofibrate, Micronized 134 mg Cap PO SCH (09:32)
[2018-04-20] MEDS: Calcium Carb/Vit D 500 mg/200 U Tab PO SCH ×2 (09:32→16:02)
--- NOTE | 2018-04-20 15:40 | General Progress Note ---
Subjective - Review of Systems Events since last encounter: confused in no distress Objective - Results Result Diagrams: 04/13/18 16:48 04/13/18 16:48 Recent Labs: Laboratory Last Values WBC 5.1 Th/cmm (4.8-10.8) 04/13/18 16:48 RBC 3.96 Mil/cmm (3.80-5.20) 04/13/18 16:48 Hgb 12.5 gm/dL (12-16) 04/13/18 16:48 Hct 36.7 % (41.0-60) L 04/13/18 16:48 MCV 92.6 fl (81-100) 04/13/18 16:48 MCH 31.6 pg (27.0-31.0) H 04/13/18 16:48 MCHC Differential 34.1 pg (28.0-36.0) 04/13/18 16:48 RDW 12.3 % (11.5-20.0) 04/13/18 16:48 Plt Count 212 Th/cmm (150-400) 04/13/18 16:48 MPV 8.1 fl 04/13/18 16:48 Neutrophils % 64.5 % (40.0-80.0) 04/13/18 16:48 Lymphocytes % 25.5 % (20.0-50.0) 04/13/18 16:48 Monocytes % 8.7 % (2.0-10.0) 04/13/18 16:48 Eosinophils % 0.7 % (0.0-5.0) 04/13/18 16:48 Basophils % 0.6 % (0.0-2.0) 04/13/18 16:48 Sodium 137 mEq/L (136-145) 04/13/18 16:48 Potassium 3.5 mEq/L (3.5-5.1) 04/13/18 16:48 Chloride 105 mEq/L (98-107) 04/13/18 16:48 Carbon Dioxide 26.6 mEq/L (21.0-31.0) 04/13/18 16:48 Anion Gap 8.9 (7.0-16.0) 04/13/18 16:48 BUN 25 mg/dL (7-25) 04/13/18 16:48 Creatinine 0.8 mg/dL (0.6-1.2) 04/13/18 16:48 Est GFR ( Amer) TNP 04/13/18 16:48 Est GFR (Non-Af Amer) TNP 04/13/18 16:48 BUN/Creatinine Ratio 31.3 04/13/18 16:48 Glucose 179 mg/dL (70-105) H 04/13/18 16:48 POC Glucose 102 MG/DL (70 - 105) 04/20/18 06:19 Calcium 9.5 mg/dL (8.6-10.3) 04/13/18 16:48 Total Bilirubin 0.3 mg/dL (0.3-1.0) 04/13/18 16:48 AST 18 U/L (13-39) 04/13/18 16:48 ALT 5 U/L (7-52) L 04/13/18 16:48 Alkaline Phosphatase 62 U/L (34-104) 04/13/18 16:48 Total Protein 6.8 gm/dL (6.0-8.3) 04/13/18 16:48 Albumin 4.1 gm/dL (3.7-5.3) 04/13/18 16:48 Globulin 2.7 gm/dL 04/13/18 16:48 Albumin/Globulin Ratio 1.5 (1.0-1.8) 04/13/18 16:48 Triglycerides 112 mg/dL (<150) 04/14/18 10:16 Cholesterol 157 mg/dL (<200) 04/14/18 10:16 LDL Cholesterol Direct 79 mg/dL (75-193) 04/14/18 10:16 HDL Cholesterol 63 mg/dL (23-92) 04/14/18 10:16 TSH 1.40 uIU/ml (0.34-5.60) 04/13/18 16:48 Urine Source CLEAN C 04/13/18 14:55 Urine Color YELLOW 04/13/18 14:55 Urine Clarity CLEAR (CLEAR) 04/13/18 14:55 Urine pH 6.0 (4.6 - 8.0) 04/13/18 14:55 Ur Specific [place] 1.025 (1.005-1.030) 04/13/18 14:55 Urine Protein NEGATIVE mg/dL (NEGATIVE) 04/13/18 14:55 Urine Glucose (UA) NEGATIVE mg/dL (NEGATIVE) 04/13/18 14:55 Urine Ketones NEGATIVE mg/dL (NEGATIVE) 04/13/18 14:55 Urine Blood NEGATIVE (NEGATIVE) 04/13/18 14:55 Urine Nitrate NEGATIVE (NEGATIVE) 04/13/18 14:55 Urine Bilirubin NEGATIVE (NEGATIVE) 04/13/18 14:55 Urine Urobilinogen 0.2 E.U./dL (0.2 - 1.0) 04/13/18 14:55 Ur Leukocyte Esterase TRACE (NEGATIVE) H 04/13/18 14:55 Urine RBC NONE SEEN /hpf (0-5) 04/13/18 14:55 Urine WBC 2-5 /hpf (0-5) 04/13/18 14:55 Ur Epithelial Cells OCCASIONAL /lpf (FEW) 04/13/18 14:55 Urine Bacteria 1+ /hpf (NONE SEEN) H 04/13/18 14:55 Salicylates < 25.0 mg/L (30.0-100.0) L 04/13/18 16:48 Urine Opiates Screen NEGATIVE (NEGATIVE) 04/13/18 14:55 Urine Methadone Screen NEGATIVE (NEGATIVE) 04/13/18 14:55 Acetaminophen < 10.0 ug/mL (10.0-30.0) L 04/13/18 16:48 Ur Barbiturates Screen NEGATIVE (NEGATIVE) 04/13/18 14:55 Ur Tricyclics Screen NEGATIVE (NEGATIVE) 04/13/18 14:55 Ur Phencyclidine Scrn NEGATIVE (NEGATIVE) 04/13/18 14:55 Amphetamines Screen NEGATIVE (NEGATIVE) 04/13/18 14:55 U Methamphetamines Scrn NEGATIVE (NEGATIVE) 04/13/18 14:55 U Benzodiazepines Scrn NEGATIVE (NEGATIVE) 04/13/18 14:55 U Cocaine Metab Screen NEGATIVE (NEGATIVE) 04/13/18 14:55 U Cannabinoids Screen NEGATIVE (NEGATIVE) 04/13/18 14:55 Ethyl Alcohol < 10 mg/dL (0-10) 04/13/18 16:48 RPR NONREACTIVE (NONREACTIVE) 04/13/18 16:48 - Physical Exam Vitals and I&O: Vital Signs Temp 97.0 F 04/20/18 14:29 Pulse 67 04/20/18 14:29 Resp 20 04/20/18 14:29 BP 136/68 04/20/18 14:29 Pulse Ox 96 04/20/18 09:54 Intake & Output 04/19/18 04/20/18 04/20/18 18:59 06:59 18:59 Intake Total 1200 270 Balance 1200 270 Intake: Oral 1200 270 Other: # Voids 2 1 # Bowel Movements 1 Active Medications: Current Medications Acetaminophen (Tylenol) 650 mg PO Q4HR PRN PRN Reason: Mild Pain / Temp above 100 Stop: 06/12/18 23:29 Aspirin (Ecotrin) 81 mg PO HS [facility] Stop: 06/13/18 20:59 Last Admin: 04/19/18 21:44 Dose: 81 mg Atorvastatin Calcium (Lipitor) 10 mg PO HS [facility]; Protocol Stop: 06/13/18 20:59 Last Admin: 04/19/18 21:44 Dose: 10 mg Bisacodyl (Dulcolax 10 Mg Supp) 10 mg RC DAILY PRN PRN Reason: Constipation Stop: 06/12/18 23:24 Calcium/Vitamin D (Oscal W/Vitamin D) 1 tab PO BID [facility] Stop: 06/13/18 08:59 Last Admin: 04/20/18 09:32 Dose: 1 tab Carvedilol (Coreg) 6.25 mg PO DAILY [facility] Stop: 06/13/18 08:59 Last Admin: 04/20/18 09:31 Dose: 6.25 mg Docusate Sodium (Colace) 100 mg PO DAILY [facility] Stop: 06/13/18 08:59 Last Admin: 04/20/18 09:32 Dose: 100 mg Donepezil HCl (Aricept) 5 mg PO QAM [facility] Stop: 06/13/18 08:59 Last Admin: 04/20/18 09:31 Dose: 5 mg Fenofibrate (Tricor) 134 mg PO DAILY [facility] Stop: 06/13/18 08:59 Last Admin: 04/20/18 09:32 Dose: 134 mg Lorazepam (Ativan) 0.5 mg PO Q4HR PRN; Protocol PRN Reason: Anxiety Stop: 05/13/18 23:29 Magnesium Hydroxide (Milk Of Magnesia) 30 ml PO DAILY PRN PRN Reason: Constipation Stop: 06/12/18 23:24 Sertraline HCl (Zoloft) 150 mg PO HS [facility] Stop: 06/13/18 20:59 Last Admin: 04/19/18 21:43 Dose: 150 mg Sertraline HCl (Zoloft) 25 mg PO DAILY [facility]; Protocol Stop: 06/14/18 08:59 Last Admin: 04/20/18 09:31 Dose: 25 mg Sodium Phosphate (Fleet Enema) 135 ml RC Q48H PRN PRN Reason: IF DULCOLAX INEFFECTIVE Stop: 06/12/18 23:29 Zolpidem Tartrate (Ambien) 5 mg PO HS PRN PRN Reason: Insomnia Stop: 06/12/18 23:29 Last Admin: 04/19/18 21:44 Dose: 5 mg Nutritional Asmnt/Malnutr-PDOC - Dietary Evaluation Malnutrition Findings (Please click <Entered> for more info): Nutritional Asmnt/Malnutrition Start: 04/17/18 14: 27 Text: Status: Complete Freq: Protocol: Document 04/17/18 14:27 TEREZA (Rec: 04/17/18 14:48 TEREZA [email or web address]) Nutritional Asmnt/Malnutrition Patient General Information Nutritional Screening Moderate Risk Diagnosis psychosis Pertinent Medical Hx/Surgical Hx hypertension, diabetes, asthma , dyslipidemia, dementia, depression, COPD, psychosis Subjective Information Pt was not present in room at time of visit. Per EMR, PO intake 50-75%. Current Diet Order/ Nutrition Support CCHO 60 gm, mechanical soft chopped Pertinent Medications lipitor, dulcolax, oscal w/ Vit D, colace, tricor, Pertinent Labs 04/15-04/16: POC 120-92 ( trending down) 04/13 Glucose 179 Nutritional Hx/Data Height 1.47 m Height (Calculated Centimeters) 147.3 Current Weight (lbs) 40.823 kg Weight (Calculated Kilograms) 40.8 Weight (Calculated Grams) 24959.3 [place] Body Weight 96 lb Body Mass Index (BMI) 18.8 Weight Status Approriate GI Symptoms GI Symptoms None Last BM none noted Difficult in: None Food Allergies No Skin Integrity/Comment: intact Current %PO Fair (50-74%) Estimated Nutritional Goals BEE in Kcals: Using Current wt Calories/Kcals/Kg 25-30 Kcals Calculated 5901-4133 Protein: Using Current wt Protein g/k-1.2 Protein Calculated 41-49 g Fluid: ml 9285-4540 (1 kcal/ml) Nutritional Problem No current Nutrition Prob Problem N/A Malnutrition Alert Is there a minimum of two criteria No selected? Query Text:Check all the applicable criteria. A minimum of two criteria are recommended for diagnosis of either severe or non-severe malnutrition. Malnutrition Related to Morbid Obesity Malnutrition related to morbid obesity No Intervention/Recommendation Comments 1. Continue with CCHO 60 gm, mechanical soft chopped diet as ordered. Continue to monitor glucose labs. 2. Monitor PO intake, wt, labs and skin integrity 3. F/U as low risk in 7 days, 04/24 Expected Outcomes/Goals Expected Outcomes/Goals 1. PO intake to meet at least 75% of nutritional needs. 2. Wt stability, skin to remain intact, labs to approach WNL Reviewed by Jennifer Brown RD
== END 2018-04-20 17:15 | DRG 885 ==
LOC: ER 15:53 → GERO 18:09
PROVIDERS: ADMIT Psychiatry & Neurology Psychiatry; ATTEND Psychiatry & Neurology Psychiatry
DX: F29 Unspecified psychosis not due to a substance or known physiological condition (principal); F03.91 Unspecified dementia, unspecified severity, with behavioral disturbance; F39 Unspecified mood [affective] disorder; E11.9 Type 2 diabetes mellitus without complications; E78.5 Hyperlipidemia, unspecified; J44.9 Chronic obstructive pulmonary disease, unspecified; I10 Essential (primary) hypertension; K21.9 Gastro-esophageal reflux disease without esophagitis
CPT/HCPCS: 36415-UA; 80053-TC; 80061-TC; 80307; 80320-TC; 80329-TC; 81001-TC; 82948-90; 83036-90; 84443-TC; 85025-TC; 86592-TC; 93005; Z7610